=== PATIENT | male | born 1970 | race Caucasian/White ===

== ENCOUNTER 2017-03-11 10:55 | Emergency (ER) | payer BC ==
[~2017-03-11] VITALS: Ht 180.3 cm; Wt 64.0 kg
[2017-03-11 10:58] VITALS: Ht 180.3 cm; Wt 64.0 kg
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
[2017-03-11] MEDS ORDERED: LIDOCAINE 1% (MDV) 20 ML INJ SC ONE (12:30)
[2017-03-11] MEDS ORDERED: HYDR-906 PO (13:23)
== END 2017-03-11 13:36 | disposition home or self-care (01) ==
LOC: FTE 10:55
DX: S61.412A Laceration without foreign body of left hand, initial encounter (principal); W22.8XXA Striking against or struck by other objects, initial encounter; Y92.9 Unspecified place or not applicable

== ENCOUNTER 2018-01-20 18:43 | Emergency (ER) | END 2018-01-20 20:37 | disposition home or self-care (01) ==